=== PATIENT | male | born 1935 | race Caucasian/White ===

== ENCOUNTER 2020-04-15 01:11 | Inpatient (IN) | payer MEDICARE, OTHER ==
[~2020-04-15] VITALS: Ht 175.3 cm; Wt 61.2 kg
--- NOTE | 2020-04-15 01:19 | NUR ---
TREY FROM [facility] S/P UNWITTNESSED GLF -KO, -BLOOD THINNER. TEST POS COVID 04/11/2020; pt to bed 5, on non-rbr, low o2 sat. +Sob. piv started, blood sent to lab, pt on monitor. er doctor at for flaco
[2020-04-15] MEDS ORDERED: IV NS 0.9% 500 ML BAG IV ONE (01:30)
[2020-04-15 01:35] LABS: BASOPHILS % (AUTO) 0.1 % (0.0-2.0); HEMATOCRIT 39 % (39-51); HEMOGLOBIN 12.6 g/dL (13.5-17.5); LYMPHOCYTES # (AUTO) 0.3 /CMM (0.8-4.8); LYMPHOCYTES % (AUTO) 2.7 % (20.0-44.0); MEAN CORPUSCULAR HGB CONC 32 g/dl (31.0-36.0); MEAN CORPUSCULAR VOLUME 97 fL (80-96); MONOCYTES # (AUTO) 0.4 /CMM (0.1-1.30); MONOCYTES % (AUTO) 3.2 % (2.0-12.0); NEUTROPHILS # (AUTO) 11.7 /CMM (1.8-8.9); PLATELET COUNT (AUTO) 219 /CMM (150-450); RED BLOOD CELL COUNT(AUTO) 4.03 MIL/uL (4.5-6.0); WHITE BLOOD COUNT (AUTO) 12.5 K/uL (4.3-11.0)
[2020-04-15 01:49] LABS: CALCIUM, SERUM 8.9 mg/dL (8.5-10.1); CARBON DIOXIDE 16 mmol/L (21-32); CHLORIDE 107 mmol/L (98-107); CREATININE 3.3 mg/dL (0.6-1.3); GLUCOSE 185 mg/dL (74-106); POTASSIUM 3.9 mmol/L (3.5-5.1); SODIUM SERUM 143 mmol/L (136-145); UREA NITROGEN, BLOOD 68 mg/dL (7-18)
[2020-04-15 02:08] LABS: ALANINE AMINOTRANSFERASE 34 U/L (12-78); ALBUMIN 2.5 g/dL (3.4-5.0); ALKALINE PHOSPHATASE 142 U/L (46-116); ASPARTATE AMINOTRANSFERASE 132 U/L (15-37); BILIRUBIN,DIRECT 0.2 mg/dL (0.0-0.2); BILIRUBIN,TOTAL 0.5 mg/dL (0.2-1.0); TOTAL PROTEIN, SERUM 7.6 g/dL (6.4-8.2)
--- NOTE | 2020-04-15 05:10 | NUR ---
DR. JACKSON SPEAKING WITH DR. MORROW
--- NOTE | 2020-04-15 05:15 | NUR ---
BED ASSIGNMENT 110
--- NOTE | 2020-04-15 05:43 | NUR ---
DR. MORROW PAGEEden PER ER ORDER.
--- NOTE | 2020-04-15 06:00 | NUR ---
MONAE () CONTACT INFORMATION: [phone]
--- NOTE | 2020-04-15 06:00 | NUR ---
correction: pt had positive serum covid test on 04/10/20 from [facility]
[2020-04-15] MEDS ORDERED: ALLO100T PO (06:08)
[2020-04-15] MEDS ORDERED: AZIT250T13 PO (06:08)
[2020-04-15] MEDS ORDERED: ONDA4TAB5 PO (06:08)
[2020-04-15] MEDS ORDERED: AMLO5TAB9 PO (06:08)
[2020-04-15] MEDS ORDERED: CALC0.253 PO (06:08)
[2020-04-15] MEDS ORDERED: POLY17PO4 PO (06:08)
[2020-04-15] MEDS ORDERED: HYDR-4354 PO (06:08)
[2020-04-15] MEDS ORDERED: MELA1TAB9 PO (06:08)
[2020-04-15] MEDS ORDERED: LOSA25TA27 PO (06:08)
[2020-04-15] MEDS ORDERED: HYDR-4384 PO (06:08)
--- NOTE | 2020-04-15 06:08 | NUR ---
report given to consuelo monson for elijah; pt will be transported to 1st floor
[2020-04-15] MEDS ORDERED: ALBUTEROL SULFATE 8 GM HFA.AER.AD IH PRN (06:30)
--- NOTE | 2020-04-15 06:59 | NUR ---
pt transported to 1st floor; admitting doctor: sameera
[2020-04-15] MEDS ORDERED: ACETAMINOPHEN 650 MG/SUPP.RECT RC PRN (07:00)
[2020-04-15] MEDS ORDERED: ONDANSETRON HCL/PF 4 MG/2 ML VIAL IVP PRN (07:00)
--- NOTE | 2020-04-15 07:14 | NUR ---
RN NOTES ENDORSED TO INCOMING RN FOR JESUS; REPORT GIVEN.
[2020-04-15 07:29] LABS: ABG BASE EXCESS -9.7 mmol/L; ABG OXYGEN SATURATION 88.9 % (92.0-98.5); ABG PCO2 24.3 mmHg (35.0-45.0); ABG PH 7.375 (7.350-7.450); ABG PO2 57.7 mmHg (75.0-100.0); AaDO2 487.2 mmHg; COHb 0.4 % (0.5-1.5); MetHb 0.3 % (0.0-1.5); O2Hb 88.3 % (94.0-97.0); SITE, ABG Right Radial; VENT MODE, BG NRB 15L
--- NOTE | 2020-04-15 07:30 | NUR ---
RN NOTES RECEIVED HAND OFF REPORT FROM NIGHTSHIFT RN FOR JESUS. PT IS IN ROOM, MADE COMFORTABLE, NOTIFIED OF ARRIVAL. WILL CONTINUE TO MONITOR FOR ANY CHANGES.
--- NOTE | 2020-04-15 07:50 | NUR ---
Left message to re adm orders
[2020-04-15 08:00] VITALS: BP 112/56
--- NOTE | 2020-04-15 08:00 | NUR ---
called back and orders given and carried out
--- NOTE | 2020-04-15 08:39 | NUR ---
notified re; patient's ABG Results and orders given with add high flow 100 % 60L to NRB respirotory was notified re; orders
[2020-04-15 08:49] LABS: C-REACTIVE PROTEIN 30.6 mg/dL (0.0-0.9)
[2020-04-15] MEDS: AZITHROMYCIN 500 MG in IV D5W 250 ML IV SCH (09:29)
[2020-04-15] MEDS: IV D5/ 0.9% NACL 1,000 ML IV PRN ×2 (09:29→20:37)
[2020-04-15] MEDS ORDERED: ONDANSETRON 4 MG TAB.RAPDIS PO PRN (10:00)
[2020-04-15] MEDS ORDERED: HYDROCODONE/APAP 5/325MG 1 EACH TABLET PO PRN (10:00)
[2020-04-15] MEDS ORDERED: AMLODIPINE BESYLATE 5 MG TABLET PO SCH (10:00)
[2020-04-15] MEDS ORDERED: LOSARTAN POTASSIUM 25 MG TABLET PO SCH (10:00)
[2020-04-15] MEDS: CALCITRIOL 0.25 MCG CAPSULE PO SCH (10:27)
[2020-04-15] MEDS ORDERED: AZITHROMYCIN 250 MG TABLET PO SCH (10:30)
[2020-04-15 12:00] VITALS: BP 112/57
--- NOTE | 2020-04-15 12:33 | NUR ---
RN NOTES PT REPORT LOWER BACK PAIN. PROTECTED WITH MEPILEX AND PLACED PILLOWS FOR COMFORT, MEDICATED WITH NORCO BUT TO NO HELP. SENT MESSAGE TO DR. MORROW, RECEIVED ORDER FOR CT OF LUMBER AND MORPHINE 2 MG IVP Q2H PRN. WILL CONTINUE TO MONITOR
--- NOTE | 2020-04-15 12:34 | NUR ---
RN NOTES PT UNABLE TO HAVE CT SCAN BECAUSE HE REQUIRES CONTINUOUS HIGHFLOW OXYGEN. XRAY OF LOWER BACK ORDERED INSTEAD BECAUSE IT CAN BE DONE PORTABLY. WILL CONTINUE TO MONITOR FOR ANY CHANGES.
--- NOTE | 2020-04-15 13:00 | NUR ---
RT NOTE PT PLACED ON HIGH FLOW NASAL CANULA 60LPM 100% POST ABG PER DR GONZALEZ. SAT 88% HR 97. NO RESPIRATORY DISTRESS NOTED. WILL CONTINUE TO MONITOR PT. Addendum: 04/15/20 at 1302 by JAYLENE MOSQUEDA RT Amended: Links added.
[2020-04-15] MEDS: MORPHINE SULFATE INJ 2 MG/ML DISP.SYRIN IM PRN ×2 (13:16→18:47)
[2020-04-15 16:00] VITALS: BP 119/59
--- NOTE | 2020-04-15 16:55 | NUR ---
RN RENE NOTES VENOUS DOPPLER STUDY ON LOWER EXTREMITIES COMPLETED. PARTIAL DVT NOTED ON LEFT DISTAL FEMORAL VEIN SEEN, NOTIFIED. EXPRESSED CONCERNS REGARDING THE USE OF ANTICOAGULANTS BECAUSE OF HX HEMORRHAGING ON THREE OCCASIONS WHILE ON ANTICOAGULANTS. DR. MORROW MADE AWARE OF 'S CONCERNS AND RESULTS OF VENOUS STUDIES. NO NEW ORDERS AT THIS TIME. WILL CONTINUE TO MONITOR
--- NOTE | 2020-04-15 16:59 | NUR ---
RN NOTES BLADDER SCAN DONE FOR 550 M RESIDUAL NOTED. PER DR. MORROW RIOS CATH INSERTED AND DRAINING CLEAR AND ALDA COLOR URINE BY GRAVITY.
[2020-04-15] MEDS: ALLOPURINOL 100 MG TABLET PO SCH (17:07)
[2020-04-15] MEDS: POLYETHYLENE GLYCOL 3350 17 GM POWD.PACK PO SCH (17:07)
--- NOTE | 2020-04-15 19:05 | NUR ---
RN RENE CLOSING PT IS CURRENTLY IN BED, AWAKE, ALERT AND ORIENTED X2, PT IS ON OXYGEN 15L VIA NON REBREATHER MASK, 60L OF HIGH FLOW VIA N/C, SATURATING AT 93% AT THIS TIME, PT IS ON TELE WITH SR-ST RHYTHM, PT HAS A LEFT HAND 22' SALINE LOCK INTACT AND FLUSHED WELL, NO ACUTE DISTRESS OR SOB NOTED, HEAD OF BED ELEVATED TOLERATED, PT IN STABLE CONDITION AT THIS TIME, CALL LIGHT WITHIN REACH AND FUNCTIONING, WILL ENDORSE TO 7PM SHIFT NURSE TO JESUS
--- NOTE | 2020-04-15 19:15 | NUR ---
RN CLOSING NOTES: PATIENT IN BED, AWAKE, RESPONSIVE. AAOX2. ON HIGH FLOW O2 AND NRB. UNLABORED BREATHING. NO C/O PAIN AT THIS TIME. RIOS CATH INTACT AND PATENT, DRAINING CLEAR ALDA URINE. LEFT HAND G22 C/D/I; FLUSHING WELL. ON D5 NS AT 70 MLS/HR. SAFETY PRECAUTIONS IMPLEMENTED. BED LOCKED, ALARM ON, LOW POSITION. HOB ELEVATED. CALL LIGHT WITHIN REACH. WILL CONT. TO MONITOR. Addendum: 04/15/20 at 2121 by CHARLY CADE RN CORRECTION: RN OPENING NOTES
[2020-04-15 20:00] VITALS: BP 126/60
--- NOTE | 2020-04-15 23:24 | NUR ---
RN NOTE: PATIENT NOTED WITH SUSTAINED HR 120-130s. AFEBRILE. REMAINS ON HIGH FLOW O2 AT 60L AND NRB 15L, SPO2 90-92%. NO RESPIRATORY DISTRESS. PATIENT IS DNR/DNI WITH COMFORT MEASURES. KARLENE LUTZ AWARE. RECEIVED NEW ORDER ATIVAN 0.5MG IV Q4H PRN. WILL CONT. TO MONITOR. Addendum: 04/16/20 at 0208 by CHARLY CADE RN PATIENT'S HR WENT DOWN TO 115, SPO2 98%. NO ACUTE DISTRESS AT THIS TIME. ASLEEP BUT EASILY AROUSABLE. WILL CONT. TO MONITOR.
[2020-04-15] MEDS: LORAZEPAM INJ 2 MG/ML VIAL IV PRN (23:40)
[2020-04-16] VITALS: BP 115/56
--- NOTE | 2020-04-16 | NUR ---
RN NOTE: AT AROUND MIDNIGHT, PATIENT NOTED WITH LOW GRADE FEVER 99.5F; TYLENOL SUPP ORDERED ADMINISTERED. WILL CONT. TO MONITOR. TEMP RECHECKED VIA AXILLA AT 0100, FEVER CAME DOWN TO 98.7F. WILL CONT. TO MONITOR.
[2020-04-16 04:00] VITALS: BP 113/56
[2020-04-16] MEDS: IV D5/ 0.9% NACL 1,000 ML IV PRN ×2 (06:41→23:18)
--- NOTE | 2020-04-16 07:12 | NUR ---
RN CLOSING NOTES: PATIENT IN BED. NO ACUTE DISTRESS. PATIENT'S CONDITION IMPROVED; HR 90s, SPO2 95%. STABLE CONDITION AT THIS TIME. ENDORSE TO AM RN FOR CONTINUITY OF CARE.
[2020-04-16 07:18] LABS: ALANINE AMINOTRANSFERASE 33 U/L (12-78); ALBUMIN 1.7 g/dL (3.4-5.0); ALKALINE PHOSPHATASE 105 U/L (46-116); ASPARTATE AMINOTRANSFERASE 112 U/L (15-37); BILIRUBIN,TOTAL 0.5 mg/dL (0.2-1.0); CALCIUM, SERUM 7.9 mg/dL (8.5-10.1); CARBON DIOXIDE 17 mmol/L (21-32); CHLORIDE 116 mmol/L (98-107); CREATININE 2.7 mg/dL (0.6-1.3); GLUCOSE 176 mg/dL (74-106); PHOSPHORUS 4.5 mg/dL (2.5-4.9); POTASSIUM 3.2 mmol/L (3.5-5.1); SODIUM SERUM 147 mmol/L (136-145); TOTAL PROTEIN, SERUM 5.8 g/dL (6.4-8.2); UREA NITROGEN, BLOOD 67 mg/dL (7-18)
--- NOTE | 2020-04-16 07:20 | NUR ---
RN OPENING NOTE: Received patient in bed and asleep. Appears comfortable and relaxed. No pain noted on patient. Tele monitor showing sinus rhythmin the 90s. On cont. o2 via high flow oxygen with saturation noted @ 91%. No SOB and not in respiratory distress. Isolation precautions in place to R/O COVID. IV site clean, dry, patent and intact with infusion of D5 NS @ 70mls/hr being tolerated well. Norman catheter in place and draining yellow urine. Call light in reach. Bed locked, low and at semi-catalan's position. Side rails up x3. Bed alarm on. Safety ensured and observed. Will continue to monitor.
[2020-04-16] MEDS ORDERED: CEFTRIAXONE 1 G in IV D5W 50 ML IV SCH (07:30)
[2020-04-16 07:46] LABS: BASOPHILS % (AUTO) 0.1 % (0.0-2.0); EOSINOPHILS % (AUTO) 0.1 % (0.0-6.0); HEMATOCRIT 30 % (39-51); HEMOGLOBIN 9.8 g/dL (13.5-17.5); LYMPHOCYTES # (AUTO) 0.4 /CMM (0.8-4.8); LYMPHOCYTES % (AUTO) 2.6 % (20.0-44.0); MEAN CORPUSCULAR HGB CONC 32 g/dl (31.0-36.0); MEAN CORPUSCULAR VOLUME 95 fL (80-96); MONOCYTES # (AUTO) 0.3 /CMM (0.1-1.30); MONOCYTES % (AUTO) 1.8 % (2.0-12.0); NEUTROPHILS # (AUTO) 13.1 /CMM (1.8-8.9); NEUTROPHILS % (AUTO) 95.4 % (43.0-81.0); PLATELET COUNT (AUTO) 181 /CMM (150-450); RED BLOOD CELL COUNT(AUTO) 3.16 MIL/uL (4.5-6.0); WHITE BLOOD COUNT (AUTO) 13.7 K/uL (4.3-11.0)
--- NOTE | 2020-04-16 07:57 | NUR ---
WOUND CARE CONSULT: REVIEWED CHART, NURSING DOCUMENTATION AND PHOTOS WHICH SHOW SACRAL REDNESS, RT ANKLE WOUND, LEFT THIGH WOUND AND RT ELBOW SKIN TEAR, ALL PRESENT ON ADMISSION. RECOMMEND SURGICAL/DPM CONSULTS. DR NEVAREZ AND DR BRITT NOTIFIED OF CONSULT REQUESTS. RECOMMENDATIONS MADE FOR SKIN PROTECTION. DISCUSSED WITH NURSING STAFF. PT IS ON KEVIN ISOFLEX LOW AIRLOSS BED. CURRENT SEBASTI[place]N SCORE IS 13. WILL SEE PRN. LOERA IN AGREEMENT WITH PLAN OF CARE. Addendum: 04/16/20 at 0819 by FABRICIO MCADAMS WNDNU DEFER TO SURGICAL AND PODIATRY TEAMS FOR WOUND TREATMENT PLAN.
[2020-04-16 08:00] VITALS: BP 106/54
[2020-04-16] MEDS ORDERED: Z GUARD REMEDY 2 OZ OINT TP PRN (08:00)
[2020-04-16 08:47] LABS: FERRITIN 1334 ng/mL (8-388)
[2020-04-16] MEDS: POLYETHYLENE GLYCOL 3350 17 GM POWD.PACK PO SCH ×2 (08:51→17:09)
[2020-04-16] MEDS: CALCITRIOL 0.25 MCG CAPSULE PO SCH (08:51)
[2020-04-16] MEDS: ALLOPURINOL 100 MG TABLET PO SCH ×2 (08:51→17:08)
[2020-04-16] MEDS: AZITHROMYCIN 500 MG in IV D5W 250 ML IV SCH (08:51)
[2020-04-16] MEDS: DEXAMETHASONE SOD PHOSPHATE 4 MG/ML VIAL IV SCH (08:56)
[2020-04-16] MEDS: CEFEPIME 2 GM in IV D5W 100 ML IV SCH (09:32)
[2020-04-16] MEDS: Z GUARD REMEDY 2 OZ OINT TP SCH (09:32)
--- NOTE | 2020-04-16 10:13 | NUR ---
rn note: patient was taken to radiology dept for CT head without contrast and was returned back to the unit accompanied by RN, RT and 2 radiology staff.
--- NOTE | 2020-04-16 10:13 | NUR ---
rn note: patient started on NPO at 0930
--- NOTE | 2020-04-16 11:13 | NUR ---
RN NOTE: SPOKE TO DR. GRIMES REGARDING PATIENT'S CT SCAN RESULTS. ORDER STAT MRI BRAIN WITHOUT CONTRAST TO R/O HEMORRHAGE. NOTED AND CARRIED OUT.
[2020-04-16 12:00] VITALS: BP 113/65
--- NOTE | 2020-04-16 12:00 | NUR ---
rn note: MRI questionnaire completed with patient's (Sneha Wiggins) and witnessed and verified by LEONELA Chiu
[2020-04-16] MEDS: POTASSIUM CL. PREMIX PERIPHER. 50 ML IV SCH ×4 (12:08→17:03)
--- NOTE | 2020-04-16 12:56 | NUR ---
MRI ON HOLD. PENDING COVID RESULTS, NURSE (SOON) IS AWARE.
--- NOTE | 2020-04-16 14:46 | NUR ---
rn note: Received information from Dr. Looney regarding his conversation with patient's . Planned IVC umbrella and MRI procedure declined. also does not want any blood thinners ordered for the patient. Noted and carried out.
[2020-04-16 16:00] VITALS: BP 114/55
--- NOTE | 2020-04-16 19:30 | NUR ---
RN OPENING NOTES Patient remains in bed. Awake, alert and oriented x2. Appears comfortable and relaxed. No pain noted on patient. Tele monitor showing sinus rhythm in the 90s. On cont. o2 via high flow oxygen with saturation noted @ 91%. No SOB and not in respiratory distress. Isolation precautions in place to R/O COVID. IV site clean, dry, patent and intact with infusion of D5 NS @ 70mls/hr being tolerated well. Norman catheter in place and draining yellow urine. Call light in reach. Bed locked, low and at semi-catalan's position. Side rails up x3. Bed alarm on. Safety ensured and observed. All safety mechanisms in place.
--- NOTE | 2020-04-16 19:46 | NUR ---
RN CLOSING NOTE: Patient remains in bed. Awake, alert and oriented x2. Appears comfortable and relaxed. No pain noted on patient. Tele monitor showing sinus rhythm in the 90s. On cont. o2 via high flow oxygen with saturation noted @ 91%. No SOB and not in respiratory distress. Isolation precautions in place to R/O COVID. IV site clean, dry, patent and intact with infusion of D5 NS @ 70mls/hr being tolerated well. Norman catheter in place and draining yellow urine. Call light in reach. Bed locked, low and at semi-catalan's position. Side rails up x3. Bed alarm on. Safety ensured and observed. Endorsed to LEONELA Horne for JESUS.
[2020-04-16 20:00] VITALS: BP 115/52
[2020-04-17] VITALS: BP 124/62
[2020-04-17 04:00] VITALS: BP 113/64
--- NOTE | 2020-04-17 06:34 | NUR ---
RN CLOSING NOTES Patient is Awake, alert and oriented x2. Appears comfortable and relaxed. No pain noted on patient. Tele monitor showing sinus rhythm in the 90s. On cont. o2 via high flow oxygen with saturation noted @ 91%. No SOB and not in respiratory distress. Isolation precautions in place to R/O COVID. IV site clean, dry, patent and intact with infusion of D5 NS @ 70mls/hr being tolerated well. Norman catheter in place and draining yellow urine. Call light in reach. Bed locked, low and at semi-catalan's position. Side rails up x3. Bed alarm on. Safety ensured and observed. All safety mechanisms in place. Will endorse the incoming nurse.
[2020-04-17 07:28] LABS: HEMATOCRIT 31 % (39-51); HEMOGLOBIN 10.2 g/dL (13.5-17.5); LYMPHOCYTES # (AUTO) 0.4 /CMM (0.8-4.8); LYMPHOCYTES % (AUTO) 3.5 % (20.0-44.0); MEAN CORPUSCULAR HGB CONC 32 g/dl (31.0-36.0); MEAN CORPUSCULAR VOLUME 95 fL (80-96); MONOCYTES # (AUTO) 0.3 /CMM (0.1-1.30); MONOCYTES % (AUTO) 2.3 % (2.0-12.0); NEUTROPHILS # (AUTO) 10.9 /CMM (1.8-8.9); NEUTROPHILS % (AUTO) 94.2 % (43.0-81.0); PLATELET COUNT (AUTO) 193 /CMM (150-450); RED BLOOD CELL COUNT(AUTO) 3.31 MIL/uL (4.5-6.0); WHITE BLOOD COUNT (AUTO) 11.6 K/uL (4.3-11.0)
--- NOTE | 2020-04-17 07:30 | NUR ---
RN OPENING NOTES Recived pt at bed, A/Ox2, watching TV, able to answer basic questions and make requests, Patient is on high flow oxygen delivering via NC at 60L, tolerating well, no SOB, O2 saturation is 98%. Tele-monitor readings: controlled, a-fib, 101-102. Norman cath noted in place draining yellow urine by gravityIV on Left FOREARM noted, patent and intact, running D5NS @ 50 cc/hr, Safety measures implemented, code status noted, bed in lowest position, call light in reach, will cont to monitor,
[2020-04-17 07:48] LABS: CALCIUM, SERUM 8.1 mg/dL (8.5-10.1); CARBON DIOXIDE 16 mmol/L (21-32); CHLORIDE 118 mmol/L (98-107); CREATININE 1.9 mg/dL (0.6-1.3); GLUCOSE 191 mg/dL (74-106); MAGNESIUM 2.4 mg/dL (1.8-2.4); PHOSPHORUS 3.4 mg/dL (2.5-4.9); POTASSIUM 3.9 mmol/L (3.5-5.1); SODIUM SERUM 150 mmol/L (136-145); UREA NITROGEN, BLOOD 59 mg/dL (7-18)
[2020-04-17 08:00] VITALS: BP 133/67
[2020-04-17] MEDS: CALCITRIOL 0.25 MCG CAPSULE PO SCH (08:21)
[2020-04-17] MEDS: POLYETHYLENE GLYCOL 3350 17 GM POWD.PACK PO SCH ×2 (08:22→17:00)
[2020-04-17] MEDS: DEXAMETHASONE SOD PHOSPHATE 4 MG/ML VIAL IV SCH (08:22)
[2020-04-17] MEDS: ALLOPURINOL 100 MG TABLET PO SCH ×2 (08:23→17:00)
[2020-04-17] MEDS: Z GUARD REMEDY 2 OZ OINT TP SCH (08:23)
[2020-04-17] MEDS: AZITHROMYCIN 500 MG in IV D5W 250 ML IV SCH (08:23)
[2020-04-17] MEDS: CEFEPIME 2 GM in IV D5W 100 ML IV SCH (08:40)
[2020-04-17] MEDS ORDERED: IV D5W 1,000 ML IV PRN (09:11)
[2020-04-17 12:00] VITALS: BP 128/78
[2020-04-17] MEDS: MORPHINE SULFATE INJ 2 MG/ML DISP.SYRIN IM PRN (13:44)
[2020-04-17 16:03] VITALS: BP 133/82
--- NOTE | 2020-04-17 17:30 | NUR ---
IV lined start leaking, inserted new IV line in Right AC G22, flushed and intact
--- NOTE | 2020-04-17 19:30 | NUR ---
RN CLOSING NOTES Pt remains in bed, A/O x 2, HOB elevated , on high flow at 60l, saturating 91%, all Meds are given, comfort needs attend, safety measures implemented, call light in reach, will endorse to PM shift RN
--- NOTE | 2020-04-17 19:30 | NUR ---
RN OPENING NOTES Client is stable in no form of distress, no s/s/ of distress noted. Client is on 60l hiflow NC, sat 90 - 95%. No s/s of pain, client denies pain. A/O x2. Will continue to monitor. Comfort care measures provided. Safety mechanisms in place. Will continue to monitor.
[2020-04-17 20:00] VITALS: BP 148/82
[2020-04-18] VITALS: BP 140/72
[2020-04-18 04:00] VITALS: BP 132/67
--- NOTE | 2020-04-18 06:44 | NUR ---
RN CLOSING NOTES No change in condition noted during the shift. The client remains in stable condition. A/O x2. O2 sat 90 -95% on Hiflow NC 60L O2, FiO2 100. No s/s of distress noted. continues Covid isolation precaution. Client denies pain, no s/s of pain. RAC 22, running D5 W @ 50ml/hr. Continues gentle hydration as noted by hospitalist. No signs of infiltration. Client comfort measures in place. Safety mechanisms in place. Will endorse the incoming nurse.
--- NOTE | 2020-04-18 07:57 | NUR ---
RN RENE OPENING NOTE RECEIVED PT IN BED, AWAKE, ALERT AND ORIENTED X2, PT IS ON HIGH FLOW OXYGEN 60L SATURATING AT 94% AT THIS TIME, PT ON TELE MONITORING WITH ST HR 103 NOTED AT THIS TIME, PT HAS A RIOS THAT IS INTACT AND DRAINING WELL VIA GRAVITY, PT HAS A RAC 22' INTACT AND FLUSHED WELL, CALL LIGHT WITHIN REACH AND FUNCTIONING, BED LOCKED AND IN LOWEST POSITION, WILL CONTINUE TO MONITOR AND ASSESS PT.
[2020-04-18 08:00] VITALS: BP 128/70
[2020-04-18 08:17] LABS: HEMATOCRIT 32 % (39-51); HEMOGLOBIN 10.3 g/dL (13.5-17.5); LYMPHOCYTES # (AUTO) 0.5 /CMM (0.8-4.8); LYMPHOCYTES % (AUTO) 3.6 % (20.0-44.0); MEAN CORPUSCULAR HGB CONC 32 g/dl (31.0-36.0); MEAN CORPUSCULAR VOLUME 95 fL (80-96); MONOCYTES # (AUTO) 0.3 /CMM (0.1-1.30); MONOCYTES % (AUTO) 2.2 % (2.0-12.0); NEUTROPHILS # (AUTO) 12.8 /CMM (1.8-8.9); NEUTROPHILS % (AUTO) 94.2 % (43.0-81.0); PLATELET COUNT (AUTO) 215 /CMM (150-450); WHITE BLOOD COUNT (AUTO) 13.6 K/uL (4.3-11.0)
[2020-04-18] MEDS: ALLOPURINOL 100 MG TABLET PO SCH ×2 (08:28→16:26)
[2020-04-18] MEDS: DEXAMETHASONE SOD PHOSPHATE 4 MG/ML VIAL IV SCH (08:28)
[2020-04-18] MEDS: CALCITRIOL 0.25 MCG CAPSULE PO SCH (08:28)
[2020-04-18] MEDS: POLYETHYLENE GLYCOL 3350 17 GM POWD.PACK PO SCH ×2 (08:28→16:25)
[2020-04-18] MEDS: CEFEPIME 2 GM in IV D5W 100 ML IV SCH (08:30)
[2020-04-18 08:33] LABS: CALCIUM, SERUM 8.7 mg/dL (8.5-10.1); CARBON DIOXIDE 17 mmol/L (21-32); CHLORIDE 120 mmol/L (98-107); CREATININE 1.7 mg/dL (0.6-1.3); GLUCOSE 228 mg/dL (74-106); MAGNESIUM 2.5 mg/dL (1.8-2.4); POTASSIUM 4.1 mmol/L (3.5-5.1); SODIUM SERUM 152 mmol/L (136-145); UREA NITROGEN, BLOOD 54 mg/dL (7-18)
[2020-04-18] MEDS: AZITHROMYCIN 500 MG in IV D5W 250 ML IV SCH (09:18)
[2020-04-18] MEDS: Z GUARD REMEDY 2 OZ OINT TP SCH (09:18)
[2020-04-18] MEDS: METOLAZONE 2.5 MG TABLET PO SCH (11:34)
[2020-04-18 12:00] VITALS: BP 152/86
[2020-04-18] MEDS: ENSURE ENLIVE CHOC 237 ML CAN PO SCH ×2 (12:24→17:15)
[2020-04-18 16:00] VITALS: BP 145/77
--- NOTE | 2020-04-18 18:21 | NUR ---
RN NOTES PT IS CURRENTLY TACHYCARDIC WITH HR BETWEEN 115-120S, OXYGEN SAT IS AT 87% ON 60 L HIGHFLOW. SENT MESSAGE TO DR. GONZALEZ SUGGESTING AN ABG. NO NEW ORDERS AT THIS TIME, PT DNR/DNI WILL CONTINUE TO MONITOR
--- NOTE | 2020-04-18 19:17 | NUR ---
RN RENE CLOSING NOTE PT IS CURRENTLY IN BED, AWAKE AND ALERT. PT IS ON HIGH FLOW OXYGEN 50L VIA N/C SATURATING AT 95% AT THIS TIME, PT IS ON TELE MONITORING ST HR 108 AT THIS TIME, NO ACUTE DISTRESS NOTED THROUGH OUT SHIFT, ALL SAFETY MEASURES TAKEN AND PROVIDED. PT IS STABLE WITH NO SOB NOTED. HOB ELEVATED AT ALL TIMES TOLERATED. CALL LIGHT WITHIN REACH AND FUNCTIONING. WILL ENDORSE TO NEXT SHIFT NURSE FOR JESUS.
[2020-04-18 20:00] VITALS: BP 140/78
--- NOTE | 2020-04-18 20:32 | NUR ---
RT PATIENT WAS RECEIVED ON 60L HIGH FLOW NASAL CANNULA 100% FIO2 AND 15 L/M NON REBREATHER MASK . PATIENT TOLERATED CURRENT O2 SETTINGS . RN AWARE, WILL CONTINUE TO MONITOR THROUGHOUT THE SHIFT.
[2020-04-18] MEDS: LORAZEPAM INJ 2 MG/ML VIAL IV PRN (20:49)
[2020-04-19] VITALS: BP 128/60
[2020-04-19 04:00] VITALS: BP 146/79
[2020-04-19 06:41] LABS: BASOPHILS % (AUTO) 0.1 % (0.0-2.0); EOSINOPHILS % (AUTO) 0.1 % (0.0-6.0); HEMATOCRIT 37 % (39-51); HEMOGLOBIN 11.7 g/dL (13.5-17.5); LYMPHOCYTES # (AUTO) 0.3 /CMM (0.8-4.8); LYMPHOCYTES % (AUTO) 1.4 % (20.0-44.0); MEAN CORPUSCULAR HGB CONC 32 g/dl (31.0-36.0); MEAN CORPUSCULAR VOLUME 98 fL (80-96); MONOCYTES # (AUTO) 0.4 /CMM (0.1-1.30); NEUTROPHILS # (AUTO) 17.4 /CMM (1.8-8.9); NEUTROPHILS % (AUTO) 96.4 % (43.0-81.0); PLATELET COUNT (AUTO) 238 /CMM (150-450); RED BLOOD CELL COUNT(AUTO) 3.81 MIL/uL (4.5-6.0)
[2020-04-19 07:01] LABS: CALCIUM, SERUM 9.2 mg/dL (8.5-10.1); CARBON DIOXIDE 16 mmol/L (21-32); CHLORIDE 116 mmol/L (98-107); CREATININE 1.8 mg/dL (0.6-1.3); GLUCOSE 213 mg/dL (74-106); MAGNESIUM 2.6 mg/dL (1.8-2.4); PHOSPHORUS 3.4 mg/dL (2.5-4.9); POTASSIUM 4.2 mmol/L (3.5-5.1); SODIUM SERUM 150 mmol/L (136-145); UREA NITROGEN, BLOOD 58 mg/dL (7-18)
--- NOTE | 2020-04-19 07:30 | NUR ---
RN OPENING NOTE Received patient in bed asleep calm and relaxed. Pt on high flow and non rebreather mask sat 90% no signs of distress. Tele monitor reading ST 120s. Has huang catheter draining clear yellow urine by gravity. Has RFA #22 flushes well. Safety measures reinforced. Call light within reach. Will cont to monitor.
[2020-04-19 08:00] VITALS: BP 139/70
[2020-04-19] MEDS: ENSURE ENLIVE CHOC 237 ML CAN PO SCH ×4 (08:00→18:00)
[2020-04-19] MEDS: DEXAMETHASONE SOD PHOSPHATE 4 MG/ML VIAL IV SCH (08:32)
[2020-04-19] MEDS: AZITHROMYCIN 500 MG in IV D5W 250 ML IV SCH (08:32)
[2020-04-19] MEDS: ALLOPURINOL 100 MG TABLET PO SCH ×3 (08:33→18:00)
[2020-04-19] MEDS: CEFEPIME 2 GM in IV D5W 100 ML IV SCH (08:33)
[2020-04-19] MEDS: Z GUARD REMEDY 2 OZ OINT TP SCH (08:33)
[2020-04-19] MEDS: CALCITRIOL 0.25 MCG CAPSULE PO SCH ×2 (08:33→09:00)
[2020-04-19] MEDS: POLYETHYLENE GLYCOL 3350 17 GM POWD.PACK PO SCH ×3 (08:33→18:00)
[2020-04-19] MEDS: METOLAZONE 2.5 MG TABLET PO SCH ×2 (08:33→09:00)
--- NOTE | 2020-04-19 09:00 | NUR ---
ACUTE RESTRAINTS ORDERED BY DR GONZALEZ. PATIENT WAS FOUND PULLING OUT TUBINGS AND OXYGEN MASK. PATIENT WAS IN DISTRESS 02 SAT WAS 40% AND HR AT 135BPM. REAPPLIED HIGH FLOW AND NON REBREATHER MASK INFORMED RT TO DOUBLE CHECK. APPLIED SOFT RESTRAINTS TO BOT WRISTS. WILL CONT TO MONITOR.
[2020-04-19] MEDS: MORPHINE SULFATE INJ 2 MG/ML DISP.SYRIN IM PRN ×2 (09:30→21:21)
[2020-04-19 12:00] VITALS: BP 122/66
--- NOTE | 2020-04-19 12:30 | NUR ---
MONAE () VISITED PATIENT. SHE SAID TO KEEP COMFORTABLE.
[2020-04-19 16:00] VITALS: BP 145/85
--- NOTE | 2020-04-19 16:23 | NUR ---
INFORMED DR. MORROW PT DID NOT EAT BREAKFAST AND LUNCH. NO NEW ORDERS FOR IV FLUIDS.
--- NOTE | 2020-04-19 18:54 | NUR ---
RN CLOSING NOTE Patient in bed appears in distress on High Flow 100% and Non rebreather 60% still in distress. Dr. Looney aware O2 sat is between 60-80%. Patient is AO x2-3 speaks unclear. Tele monitor reading ST 110-120. Norman catheter in place draining cloudy yellow urine adequate output 750ml. Patient is on bed rest with minimal movement. Turned and repositioned q2h. Kept clean and comfortable. Has RFA #22 running TKO 5ml/hr. Assisted in meals no success in feeding. Offered fluids. All needs met. Kept clean and dry. Safety measures reinforced. Call light within reach. Side rails up x2. Will endorse to shift stacker nurse for elijah
--- NOTE | 2020-04-19 19:20 | NUR ---
RN PM OPENING NOTE REPORT RECIEVED FROM CM GIPSON. PT IN BED IN SOME DISTRESS. ON HIGHFLOW AT 100% NON REBREATHER 60% AWARE THAT PATIENT IS ONLY SATURATING BETWEEN 60 TO 80% TELE MONITOR READING [address] ST .SKIN PRECAUTIONS IN PLACE TO BE REPOSITIENED [id number]. RFA #22 RUNNING TKO AT 5ML PER HOUR. PATIENT HAS POOR APPETITIE AND DID NOT REALLY EAT TODAY PER REPORT. SAFETY MEASURES IN PLACE BED DOWN LOCKED SRX3 CALL LIGTH PLACED WITHIN REACH. PATIENT HAS BILATERAL WRIST RESTRAINTS ON. PT IS DNR/DNI AND PER REPORT HAS POOR PRGONOSIS.
[2020-04-19 20:00] VITALS: BP 139/76
[2020-04-20] VITALS: BP 135/89
[2020-04-20 04:00] VITALS: BP 179/99
[2020-04-20] MEDS: LORAZEPAM INJ 2 MG/ML VIAL IV PRN (04:06)
[2020-04-20 06:59] LABS: HEMATOCRIT 37 % (39-51); HEMOGLOBIN 11.2 g/dL (13.5-17.5); LYMPHOCYTES # (AUTO) 0.2 /CMM (0.8-4.8); LYMPHOCYTES % (AUTO) 1.5 % (20.0-44.0); MEAN CORPUSCULAR HGB CONC 30 g/dl (31.0-36.0); MEAN CORPUSCULAR VOLUME 101 fL (80-96); MONOCYTES # (AUTO) 0.3 /CMM (0.1-1.30); MONOCYTES % (AUTO) 1.6 % (2.0-12.0); NEUTROPHILS # (AUTO) 16.2 /CMM (1.8-8.9); NEUTROPHILS % (AUTO) 96.9 % (43.0-81.0); PLATELET COUNT (AUTO) 158 /CMM (150-450); RED BLOOD CELL COUNT(AUTO) 3.69 MIL/uL (4.5-6.0); WHITE BLOOD COUNT (AUTO) 16.7 K/uL (4.3-11.0)
[2020-04-20 08:00] VITALS: BP 133/68
--- NOTE | 2020-04-20 08:00 | NUR ---
TELE/RN NOTES Patient in bed, A&O x 1, confused. On High flow at 100% and rebreather at 60L, breathing labored accompanied by use of accessory muscles. No cardiac distress noted, on tele monitor reading ST 113. Bilateral soft wrist restraints in place, checked every 15 minutes, skin is dry, clean and intact. IV access noted on RFA #22 running TKO at 5ml/hr. -Patient reported to have poor appetite. Fall precautions maintained. Patient DNR/DNI. Will continue to monitor for any changes in conditions.
--- NOTE | 2020-04-20 08:15 | NUR ---
TELE/RN NOTES Removed bilateral restraints and assessed skin, no skin impairments noted and sensation intact on bilateral wrists. Will continue to monitor patient every 15 minutes
--- NOTE | 2020-04-20 08:30 | NUR ---
TELE/RN NOTES Assessed patient's bilateral wrists, skin is intact and sensation noted. Will continue to monitor patient every 15 minutes regarding restraints. Bilateral soft wrist restraints back in place.
[2020-04-20] MEDS: POLYETHYLENE GLYCOL 3350 17 GM POWD.PACK PO SCH ×2 (08:36→16:11)
[2020-04-20] MEDS: CALCITRIOL 0.25 MCG CAPSULE PO SCH (08:36)
[2020-04-20] MEDS: METOLAZONE 2.5 MG TABLET PO SCH (08:36)
[2020-04-20] MEDS: ALLOPURINOL 100 MG TABLET PO SCH ×2 (08:36→16:11)
[2020-04-20] MEDS: ENSURE ENLIVE CHOC 237 ML CAN PO SCH ×3 (08:36→16:12)
[2020-04-20] MEDS: DEXAMETHASONE SOD PHOSPHATE 4 MG/ML VIAL IV SCH (08:37)
[2020-04-20] MEDS: Z GUARD REMEDY 2 OZ OINT TP SCH (08:38)
[2020-04-20] MEDS: CEFEPIME 2 GM in IV D5W 100 ML IV SCH (08:39)
--- NOTE | 2020-04-20 08:45 | NUR ---
TELE/RN NOTES Re-assessing patient's bilateral wrists from soft restraints, skin clean, dry, and intact, and sensation noted. Will continue to monitor patient for every 15 minutes regarding restraints.
--- NOTE | 2020-04-20 09:00 | NUR ---
TELE/RN NOTES Removed bilateral restraints and assessed skin, no skin impairments noted and sensation intact on bilateral wrists. Will continue to monitor patient every 15 minutes
[2020-04-20 09:05] LABS: CALCIUM, SERUM 7.8 mg/dL (8.5-10.1); CARBON DIOXIDE 19 mmol/L (21-32); CHLORIDE 121 mmol/L (98-107); CREATININE 2.1 mg/dL (0.6-1.3); GLUCOSE 242 mg/dL (74-106); MAGNESIUM 2.7 mg/dL (1.8-2.4); PHOSPHORUS 3.4 mg/dL (2.5-4.9); POTASSIUM 3.9 mmol/L (3.5-5.1); UREA NITROGEN, BLOOD 71 mg/dL (7-18)
[2020-04-20 09:08] LABS: SODIUM SERUM 156 mmol/L (136-145)
[2020-04-20] MEDS: MORPHINE SULFATE INJ 2 MG/ML DISP.SYRIN IM PRN ×6 (09:37→22:02)
--- NOTE | 2020-04-20 11:00 | NUR ---
TELE/RN NOTES Notified Dr. Jacques regarding patient's desaturation, critical lab value of sodium 156, and family's inquiry about comfort measures. No new orders at this time.
[2020-04-20 12:00] VITALS: BP 93/57
--- NOTE | 2020-04-20 12:10 | NUR ---
dr. sameera andersen notified updated patient desaturates even on high flow,and need midline,also relayed family wishes comfort care.per md ok to give prn ativan/morphine im while awaits midline,and he will talk to family once he see pt. today.primary rn made aware,nursing sup made aware,will continue to follow up.
--- NOTE | 2020-04-20 14:00 | NUR ---
TELE/RN NOTES Midline access done by IV nurse in the CORBIN, patent and intact, and flushing well. No s/s of infection, infiltration, or bleeding, will continue to monitor.
--- NOTE | 2020-04-20 15:52 | NUR ---
FAMILY VISITED PATIENT BY WINDOW OBSERVING STRICT COVID ISOLATION PRECAUTION/PPE PROVIDED,SPENT 15 MINUTES.EMOTIONAL SUPPORT GIVEN,FAMILY IN AGREEMENT PLAN OF CARE DNR/DNI.DR. CRISTHIAN ALEXANDER.
[2020-04-20 16:00] VITALS: BP 93/58
--- NOTE | 2020-04-20 16:59 | NUR ---
JEAN CARLOS informed by DEANNE Saenz that she received a call from nurse Mago stating that patient's family is requesting a java lead for the patient. SW called [facility] and left a voicemail message, asking for a call back from a java lead. In this message, SW included the call back number to [facility] ([phone]), with instructions to ask for nurse Mago. JEAN CARLOS called [facility] and spoke with Twan, asking him to let Mago know that a message has been left at [facility]. JEAN CARLOS also informed DEANNE Saenz of above.
--- NOTE | 2020-04-20 17:45 | NUR ---
TELE/RN NOTES Spoke with patient's , Munira, informed that jew services are not available to visit covid-19 positive patients, but Father Nicanor from [facility] states that he'll include him in his daily prayers. Munira expresses appreciation.
--- NOTE | 2020-04-20 18:21 | NUR ---
TELE/RN CLOSING NOTES Patient in bed, A&O x 1, confused. Less agitated now, last morphine given at 1431. Restraints removed at 1455, skin remained intact with sensation of bilateral hands and arms noted. On High flow at 100% and rebreather at 60L, breathing remains labored accompanied by use of accessory muscles. No cardiac distress noted, on tele monitor reading ST 114. IV access noted on CORBIN midline #18 running TKO at 5ml/hr. Patient did not eat today, cleansed mouth with mouth swab. Fall precautions maintained. Will endorse to restaurant shift supervisor nurse.
--- NOTE | 2020-04-20 19:20 | NUR ---
RN OPENING NOTE RECEIVED PATIENT IN BED ALERT ORIENTED X1 NONVERBAL ,ON NON BREATHER MASK HIGH FLOW OXYGEN,60L ,DNR.DNI.O2:83% HR:125 IV SITE IS MILD LINE ON RIGHT UPPER ARM INTACT PATENT,TKO RUNNING 5ML/HR ON RIOS CATHETER URINE DRAINAGE YELLOW/CLEAR,IMPLEMENT SAFETY MEASURE,BED IS IN LOWEST POSITION,CONTINUE TO MONITOR.
[2020-04-20 20:00] VITALS: BP 96/54
--- NOTE | 2020-04-20 20:00 | NUR ---
RN NOTE PATIENT IS ON NONBREATHER MASK ON HIGH FLOW OXYGEN 60L OXYGEN O2:72% AND HR IS 122,CONTINUE TO MONITOR.
--- NOTE | 2020-04-20 22:02 | NUR ---
RN NOTE MORPHINE 2GM/ML IM INJECTION GIVEN FOR RESTLESSNESS,CONTINUE TO MONITOR
[2020-04-21] VITALS: BP 84/52
--- NOTE | 2020-04-21 01:24 | NUR ---
0124 NOTED PATIENT ASYSTOLE ON THE MONITOR. WENT TO PATIENT ROOM NOTED PATIENT NON RESPONSIVE TO ANY STIMULI. SKIN COOL AND DRY TO TOUCH AND PALE IN COLOR. NO PALPABLE PULSES NOTED WHEN CHECKED. NO RISE AND FALL OF CHEST NOTED. PUPILS NON REACTIVE TO LIGHT. NO HEART TONE UPON AUSCULTATION. PATIENT WAS PRONOUNCED AT 0125.
--- NOTE | 2020-04-21 01:35 | NUR ---
0135 LEFT A MESSAGE TO DR. BRANDO MORROW'S CALL EXCHANGE REGARDING PATIENT'S .
--- NOTE | 2020-04-21 01:40 | NUR ---
0140 CALLED [facility] TO REPORT . SPOKE WITH MARKIE, [phone] OBTAINED.
--- NOTE | 2020-04-21 01:46 | NUR ---
0146 SPOKE WITH PATIENT'S MONAE HUDDLESTON AND OBTAINED TELEPHONE CONSENT TO RELEASE BODY TO [facility]. TELEPHONE CONSENT WITNESSED BY LEONELA FERNANDEZ.
--- NOTE | 2020-04-21 02:05 | NUR ---
4558 KIMBERLY WYNNE OF [facility] CALLED WITH ETA [phone]
--- NOTE | 2020-04-21 02:15 | NUR ---
RN NOTE POST MORGUE CARE GIVEN AT 0215.
--- NOTE | 2020-04-21 02:27 | NUR ---
0227 THERESE OF [facility] CALLED AND SAID BODY MAY BE RELEASED TO MORTUARY OF CHOICE.
== END 2020-04-21 05:35 | disposition expired | DRG 177 ==
LOC: ER 01:14 → TELE1 05:32
PROVIDERS: ADMIT Internal Medicine Nephrology; ATTEND Internal Medicine Nephrology
PROC: 05H533Z Insertion of Infusion Device into Right Subclavian Vein, Percutaneous Approach (ICD-10-PCS; principal; 2020-04-20)
PROC: B546ZZA Ultrasonography of Right Subclavian Vein, Guidance (ICD-10-PCS; 2020-04-20)
DX: U07.1 COVID-19 (principal); J12.89 Other viral pneumonia; S06.370A Contusion, laceration, and hemorrhage of cerebellum without loss of consciousness, initial encounter; J96.01 Acute respiratory failure with hypoxia; G92 Toxic encephalopathy; I26.99 Other pulmonary embolism without acute cor pulmonale; K86.1 Other chronic pancreatitis; C25.9 Malignant neoplasm of pancreas, unspecified; D68.69 Other thrombophilia; E87.0 Hyperosmolality and hypernatremia; N17.9 Acute kidney failure, unspecified; I82.412 Acute embolism and thrombosis of left femoral vein; J81.1 Chronic pulmonary edema; E78.5 Hyperlipidemia, unspecified; N18.9 Chronic kidney disease, unspecified; I12.9 Hypertensive chronic kidney disease with stage 1 through stage 4 chronic kidney disease, or unspecified chronic kidney disease; Z86.73 Personal history of transient ischemic attack (TIA), and cerebral infarction without residual deficits; Z66 Do not resuscitate; W19.XXXA Unspecified fall, initial encounter; Y93.9 Activity, unspecified; Y92.89 Other specified places as the place of occurrence of the external cause; I71.2 Thoracic aortic aneurysm, without rupture; N18.3 Chronic kidney disease, stage 3 (moderate); Z86.718 Personal history of other venous thrombosis and embolism; Z88.6 Allergy status to analgesic agent; Z91.81 History of falling; R26.0 Ataxic gait; K80.20 Calculus of gallbladder without cholecystitis without obstruction; M10.9 Gout, unspecified; L89.156 Pressure-induced deep tissue damage of sacral region; L98.8 Other specified disorders of the skin and subcutaneous tissue; S71.112A Laceration without foreign body, left thigh, initial encounter; S51.011A Laceration without foreign body of right elbow, initial encounter; L89.516 Pressure-induced deep tissue damage of right ankle; C44.90 Unspecified malignant neoplasm of skin, unspecified
CPT/HCPCS: 36415; 36600; 70450-TC; 71045-TC; 72100-TC; 80048-TC; 80053-TC; 80076-TC; 82728-TC; 82803-TC; 83605-TC; 83735-TC; 84100-TC; 84484-TC; 85025-TC; 85730-TC; 86140-TC; 86850-TC; 87040-TC; 87081-TC; 93970-TC; 94760-TC; 94799-TC; G0378; J0456; J0692; J0696; J1100; J2060; J2270; J3480; J3490; J7030; J7040; J7042; J7050; J7060; J7070; U0003-CS